=== PATIENT | female | born 1965 | race African-American/Black ===

== ENCOUNTER 2020-08-26 15:50 | Inpatient (IN) | payer OTHER ==
[2020-08-26 17:41] VITALS: BMI 23.6
[2020-08-26] MEDS ORDERED: chlordiazePOXIDE HCL 25 MG CAPSULE PO PRN (19:36)
[2020-08-26] MEDS ORDERED: ONDANSETRON *ODT* 4 MG TABLET SL PRN (19:36)
[2020-08-26] MEDS ORDERED: MAGNESIUM HYDROX 2400MG/30ML ORAL SUSPENSION 30 ML CUP PO PRN (19:36)
[2020-08-26] MEDS ORDERED: BISMUTH SUBSALICYLATE 524 MG/30 ML UD PO PRN (19:36)
[2020-08-26] MEDS ORDERED: IBUPROFEN 400 MG TABLET (FP) PO PRN (19:36)
[2020-08-26] MEDS ORDERED: ACETAMINOPHEN 325 MG TABLET (FP) PO PRN (19:36)
[2020-08-26] MEDS ORDERED: MENTHOL/PHENOL 1 EACH UD MM PRN (19:36)
[2020-08-26] MEDS ORDERED: MAGNESIUM CITRATE 300 ML BOTTLE PO PRN (19:36)
[2020-08-26] MEDS ORDERED: NICOTINE POLACRILEX 2 MG GUM BUC PRN (19:36)
[2020-08-26] MEDS ORDERED: MAG HYDROX/AL HYDROX/SIMETH 30 ML UNIT-DOSE CUP PO PRN (19:36)
[2020-08-27] MEDS: chlordiazePOXIDE HCL 25 MG CAPSULE PO SCH ×5 (05:34→22:20)
[2020-08-27] MEDS: hydrOXYzine PAMOATE 25 MG CAPSULE (FP) PO SCH ×6 (05:35→22:19)
[2020-08-27] MEDS: NICOTINE 7 MG/24 HOURS TOPICAL PATCH TD SCH ×2 (05:36→10:30)
[2020-08-27] MEDS: MELATONIN 5 MG TABLETS PO SCH ×2 (05:36→22:19)
[2020-08-27] MEDS: THIAMINE HCL 100 MG TABLET (FP) PO SCH ×2 (05:38→22:19)
[2020-08-27] MEDS: PRENATAL VITAMINS W/ FOLIC ACID TABLET (FP) PO SCH (10:30)
[2020-08-27] MEDS: METHADONE HCL 40 MG DISPERSABLE TABLET PO SCH (11:55)
[2020-08-27] MEDS ORDERED: FLU VACCINE (FLULAVAL) PF 60 MCG/0.5 ML SYRINGE 2020-2021 IM ONE (12:00)
[2020-08-27] MEDS: METHOCARBAMOL 500 MG TABLET PO PRN (22:22)
[2020-08-28] MEDS: hydrOXYzine PAMOATE 25 MG CAPSULE (FP) PO SCH ×5 (05:19→22:17)
[2020-08-28] MEDS: METHADONE HCL 40 MG DISPERSABLE TABLET PO SCH (05:19)
[2020-08-28] MEDS: chlordiazePOXIDE HCL 25 MG CAPSULE PO SCH ×4 (05:19→22:17)
[2020-08-28] MEDS: PRENATAL VITAMINS W/ FOLIC ACID TABLET (FP) PO SCH (10:20)
[2020-08-28] MEDS: NICOTINE 7 MG/24 HOURS TOPICAL PATCH TD SCH (10:21)
[2020-08-28] MEDS: THIAMINE HCL 100 MG TABLET (FP) PO SCH (22:17)
[2020-08-28] MEDS: MELATONIN 5 MG TABLETS PO SCH (22:37)
[2020-08-29] MEDS ORDERED: chlordiazePOXIDE HCL 10 MG CAPSULE PO PRN
[2020-08-29] MEDS: chlordiazePOXIDE HCL 10 MG CAPSULE PO SCH ×4 (05:43→22:18)
[2020-08-29] MEDS: hydrOXYzine PAMOATE 25 MG CAPSULE (FP) PO SCH ×5 (05:45→22:19)
[2020-08-29] MEDS: METHADONE HCL 40 MG DISPERSABLE TABLET PO SCH (05:45)
[2020-08-29] MEDS: PRENATAL VITAMINS W/ FOLIC ACID TABLET (FP) PO SCH (10:06)
[2020-08-29] MEDS: NICOTINE 7 MG/24 HOURS TOPICAL PATCH TD SCH (10:06)
[2020-08-29] MEDS ORDERED: NAPROXEN 375 MG TABLET PO PRN (11:17)
[2020-08-29] MEDS: BACITRACIN 0.9 GM PACKET TP SCH ×2 (12:03→21:38)
[2020-08-29] MEDS: FAMOTIDINE 20 MG TABLET PO SCH ×2 (13:09→22:18)
[2020-08-29] MEDS: THIAMINE HCL 100 MG TABLET (FP) PO SCH (22:19)
[2020-08-29] MEDS: MELATONIN 5 MG TABLETS PO SCH (22:19)
[2020-08-30] MEDS: hydrOXYzine PAMOATE 25 MG CAPSULE (FP) PO SCH ×5 (06:05→21:33)
[2020-08-30] MEDS: METHADONE HCL 40 MG DISPERSABLE TABLET PO SCH (06:05)
[2020-08-30] MEDS: chlordiazePOXIDE HCL 10 MG CAPSULE PO SCH ×2 (06:06→17:13)
[2020-08-30 07:12] LABS: SARS-CoV-2 NAA Not Detected (Not Detected)
[2020-08-30] MEDS: BACITRACIN 0.9 GM PACKET TP SCH ×2 (09:15→21:33)
[2020-08-30] MEDS: PRENATAL VITAMINS W/ FOLIC ACID TABLET (FP) PO SCH (09:16)
[2020-08-30] MEDS: FAMOTIDINE 20 MG TABLET PO SCH ×2 (09:16→21:33)
[2020-08-30] MEDS: NICOTINE 7 MG/24 HOURS TOPICAL PATCH TD SCH (09:17)
[2020-08-30 10:07] LABS: HEMOGLOBIN 11.4 GM/dL (10.7-15.3); MCH 28.6 pg (25.7-33.7); MCHC 33.5 g/dl (32.0-36.0); MEAN CELL VOLUME 85.3 fl (80-96); MEAN PLT VOLUME 8.5 fl (7.5-11.1); PLATELET COUNT 215 K/MM3 (134-434); RBC 3.99 M/mm3 (3.60-5.2); RDW 14.1 % (11.6-15.6)
[2020-08-30 10:27] LABS: ALBUMIN 3.2 g/dl (3.4-5.0); BLOOD UREA NITROGEN 13.5 mg/dL (7-18); CALCIUM 8.7 mg/dL (8.5-10.1)
[2020-08-30 10:32] LABS: BILIRUBIN,TOTAL 0.5 mg/dL (0.2-1); TOT PROT 6.9 g/dl (6.4-8.2)
[2020-08-30] MEDS: ACETAMINOPHEN 325 MG TABLET (FP) PO PRN (19:34)
[2020-08-30] MEDS: THIAMINE HCL 100 MG TABLET (FP) PO SCH (21:33)
[2020-08-30] MEDS: MELATONIN 5 MG TABLETS PO SCH (21:33)
[2020-08-31] MEDS ORDERED: chlordiazePOXIDE HCL 10 MG CAPSULE PO ONE (05:00)
[2020-08-31] MEDS: hydrOXYzine PAMOATE 25 MG CAPSULE (FP) PO SCH ×2 (05:49→09:09)
[2020-08-31] MEDS: METHADONE HCL 40 MG DISPERSABLE TABLET PO SCH (05:50)
[2020-08-31] MEDS: METHOCARBAMOL 500 MG TABLET PO PRN (05:51)
[2020-08-31] MEDS: ACETAMINOPHEN 325 MG TABLET (FP) PO PRN (05:52)
[2020-08-31 09:02] VITALS: BP 102/60; PULSE 77; TEMP 97.5
[2020-08-31] MEDS: FAMOTIDINE 20 MG TABLET PO SCH (09:09)
[2020-08-31] MEDS: BACITRACIN 0.9 GM PACKET TP SCH (09:09)
[2020-08-31] MEDS: PRENATAL VITAMINS W/ FOLIC ACID TABLET (FP) PO SCH (09:10)
[2020-08-31] MEDS: NICOTINE 7 MG/24 HOURS TOPICAL PATCH TD SCH (09:10)
== END 2020-08-31 10:05 | disposition other institution (70) | DRG 897 ==
LOC: YASAS 15:50 → Y3N 08-27 04:24
PROVIDERS: ADMIT Allergy & Immunology; ATTEND Allergy & Immunology
PROC: HZ2ZZZZ Detoxification Services for Substance Abuse Treatment (ICD-10-PCS; principal; 2020-08-27)
DX: F19.230 Other psychoactive substance dependence with withdrawal, uncomplicated (principal); F14.20 Cocaine dependence, uncomplicated; L97.818 Non-pressure chronic ulcer of other part of right lower leg with other specified severity; F11.23 Opioid dependence with withdrawal; F31.9 Bipolar disorder, unspecified; F10.230 Alcohol dependence with withdrawal, uncomplicated; G47.00 Insomnia, unspecified; F17.210 Nicotine dependence, cigarettes, uncomplicated; J45.909 Unspecified asthma, uncomplicated; B18.2 Chronic viral hepatitis C
CPT/HCPCS: 36415; 80053; 81025; 85025; 85027; 86780; 93005; 93010; C9803; G0008; Q0162; Q2036; U0003; U0005

== ENCOUNTER 2022-08-09 11:55 | Inpatient (IN) | payer OTHER ==
[2022-08-09 23:07] VITALS: BMI 22.1
[2022-08-09] MEDS ORDERED: MAG HYDROX/AL HYDROX/SIMETH 30 ML UNIT-DOSE CUP PO PRN (23:47)
[2022-08-09] MEDS ORDERED: guaiFENesin 600 MG TABLET.ER (FP) PO PRN (23:47)
[2022-08-09] MEDS ORDERED: LOPERAMIDE HCL 2 MG CAPSULE PO PRN (23:47)
[2022-08-09] MEDS ORDERED: BENZONATATE 200 MG CAPSULE PO PRN (23:47)
[2022-08-09] MEDS ORDERED: POLYETHYLENE GLYCOL (HEALTHYLAX) 3350 17 GM PACKET PO PRN (23:47)
[2022-08-09] MEDS ORDERED: DICYCLOMINE HCL 10 MG CAPSULE PO PRN (23:47)
[2022-08-09] MEDS ORDERED: NALOXONE HCL 0.4 MG/ML VIAL IM PRN (23:47)
[2022-08-09] MEDS ORDERED: ONDANSETRON *ODT* 4 MG TABLET SL PRN (23:47)
[2022-08-09] MEDS ORDERED: NALOXONE HCL (KLOXXADO) 8 MG SPRAY NS PRN (23:47)
[2022-08-09] MEDS ORDERED: ACETAMINOPHEN 325 MG TABLET (FP) PO PRN (23:47)
[2022-08-09] MEDS ORDERED: BENZOCAINE/MENTHOL (CHLORASEPTIC ) LOZENGE MM PRN (23:47)
[2022-08-09] MEDS ORDERED: IBUPROFEN 400 MG TABLET (FP) PO PRN (23:47)
[2022-08-09] MEDS ORDERED: NICOTINE POLACRILEX 2 MG GUM BUC PRN (23:47)
[2022-08-09] MEDS ORDERED: MAGNESIUM HYDROX 2400MG/30ML ORAL SUSPENSION 30 ML CUP PO PRN (23:47)
[2022-08-09] MEDS ORDERED: BISMUTH SUBSALICYLATE 524 MG/30 ML PO PRN (23:47)
[2022-08-10] MEDS ORDERED: IBUPROFEN 600 MG TABLET (FP) PO ONE (00:24)
[2022-08-10] MEDS: IBUPROFEN 600 MG TABLET (FP) PO PRN (00:26)
[2022-08-10] MEDS ORDERED: ALBUTEROL SO4 HFA INHALER IH PRN (09:38)
[2022-08-10] MEDS ORDERED: methaDONE HCL 10 MG TABLET PO SCH ×2 (09:45)
[2022-08-10] MEDS: FAMOTIDINE 20 MG TABLET PO SCH ×2 (09:54→22:34)
[2022-08-10] MEDS: METHOCARBAMOL 500 MG TABLET PO PRN (09:54)
[2022-08-10] MEDS: PRENATAL VITAMINS W/ FOLIC ACID TABLET (FP) PO SCH (09:54)
[2022-08-10] MEDS: NICOTINE 14 MG/24 HOURS TOPICAL PATCH TD SCH (09:55)
[2022-08-10 18:12] LABS: HEMOGLOBIN 12.5 GM/dL (10.7-15.3); MCH 27.8 pg (25.7-33.7); MCHC 32.9 g/dl (32.0-36.0); MEAN CELL VOLUME 84.4 fl (80-96); PLATELET COUNT 249 10^3/uL (134-434); RBC 4.51 M/mm3 (3.60-5.2); RDW 14.5 % (11.6-15.6); WHITE BLOOD COUNT 3.2 K/mm3 (4.0-10.0)
[2022-08-10 18:24] LABS: ALBUMIN 2.9 g/dl (3.4-5.0); BLOOD UREA NITROGEN 6.5 mg/dL (7-18)
[2022-08-10 18:27] LABS: CREATININE 0.8 mg/dL (0.55-1.3)
[2022-08-10 18:29] LABS: TOT PROT 6.7 g/dl (6.4-8.2)
[2022-08-10 18:32] LABS: BILIRUBIN,TOTAL 1.5 mg/dL (0.2-1)
[2022-08-10] MEDS: MELATONIN 5 MG TABLETS PO SCH (22:34)
[2022-08-10] MEDS: THIAMINE HCL 100 MG TABLET (FP) PO SCH (22:34)
[2022-08-11] MEDS ORDERED: LORazepam 0.5 MG TABLET PO PRN (09:41)
[2022-08-11] MEDS: FAMOTIDINE 20 MG TABLET PO SCH ×2 (10:21→22:04)
[2022-08-11] MEDS: NICOTINE 14 MG/24 HOURS TOPICAL PATCH TD SCH (10:21)
[2022-08-11] MEDS: PRENATAL VITAMINS W/ FOLIC ACID TABLET (FP) PO SCH (10:21)
[2022-08-11] MEDS: LORazepam 0.5 MG TABLET PO SCH ×3 (10:46→22:04)
[2022-08-11] MEDS: THIAMINE HCL 100 MG TABLET (FP) PO SCH (22:04)
[2022-08-11] MEDS: MELATONIN 5 MG TABLETS PO SCH (22:04)
[2022-08-11] MEDS: METHOCARBAMOL 500 MG TABLET PO PRN (22:05)
[2022-08-12] MEDS: LORazepam 0.5 MG TABLET PO SCH ×4 (05:16→22:02)
[2022-08-12] MEDS: NICOTINE 14 MG/24 HOURS TOPICAL PATCH TD SCH (11:11)
[2022-08-12] MEDS: PRENATAL VITAMINS W/ FOLIC ACID TABLET (FP) PO SCH (11:12)
[2022-08-12] MEDS: FAMOTIDINE 20 MG TABLET PO SCH ×2 (11:13→22:02)
[2022-08-12] MEDS: THIAMINE HCL 100 MG TABLET (FP) PO SCH (22:02)
[2022-08-12] MEDS: MELATONIN 5 MG TABLETS PO SCH (22:02)
[2022-08-13] MEDS ORDERED: LORazepam 0.5 MG TABLET PO ONE (05:00)
[2022-08-13] MEDS: PRENATAL VITAMINS W/ FOLIC ACID TABLET (FP) PO SCH (10:57)
[2022-08-13] MEDS: NICOTINE 14 MG/24 HOURS TOPICAL PATCH TD SCH (10:57)
[2022-08-13] MEDS: FAMOTIDINE 20 MG TABLET PO SCH ×2 (10:57→21:38)
[2022-08-13] MEDS: IBUPROFEN 600 MG TABLET (FP) PO PRN (15:26)
[2022-08-13] MEDS: METHOCARBAMOL 500 MG TABLET PO PRN (18:19)
[2022-08-13] MEDS: THIAMINE HCL 100 MG TABLET (FP) PO SCH (21:38)
[2022-08-13] MEDS: MELATONIN 5 MG TABLETS PO SCH (21:39)
[2022-08-14] MEDS: NICOTINE 14 MG/24 HOURS TOPICAL PATCH TD SCH (10:09)
[2022-08-14] MEDS: FAMOTIDINE 20 MG TABLET PO SCH (10:09)
[2022-08-14] MEDS: PRENATAL VITAMINS W/ FOLIC ACID TABLET (FP) PO SCH (10:09)
[2022-08-14 12:39] VITALS: BP 140/84; PULSE 80; RESP 16; TEMP 96.9
== END 2022-08-14 14:07 | disposition home or self-care (01) | DRG 897 ==
LOC: YASAS 11:55 → Y3N 08-10 06:34
PROVIDERS: ADMIT Allergy & Immunology; ATTEND Allergy & Immunology
PROC: HZ2ZZZZ Detoxification Services for Substance Abuse Treatment (ICD-10-PCS; principal; 2022-08-10)
DX: F10.230 Alcohol dependence with withdrawal, uncomplicated (principal); F14.20 Cocaine dependence, uncomplicated; F19.282 Other psychoactive substance dependence with psychoactive substance-induced sleep disorder; L97.812 Non-pressure chronic ulcer of other part of right lower leg with fat layer exposed; F12.20 Cannabis dependence, uncomplicated; F17.210 Nicotine dependence, cigarettes, uncomplicated; F31.9 Bipolar disorder, unspecified; M54.50 Low back pain, unspecified; G89.29 Other chronic pain; B18.2 Chronic viral hepatitis C; Z87.09 Personal history of other diseases of the respiratory system
CPT/HCPCS: 36415; 80053; 85027; 86780; 87811; 93005; 93010; C9803-CS; U0003; U0005

== ENCOUNTER 2022-08-10 01:21 | Emergency (ER) | payer OTHER ==
[2022-08-10 01:53] VITALS: BP 102/65; PULSE 64; RESP 18; TEMP 97.3; BMI 22.1
== END 2022-08-10 05:29 | disposition home or self-care (01) ==
LOC: JER 01:21
DX: L97.919 Non-pressure chronic ulcer of unspecified part of right lower leg with unspecified severity (principal)
CPT/HCPCS: 99281-25